=== PATIENT | female | born 2000 | race Two or more races ===

== ENCOUNTER 2024-02-19 18:46 | Inpatient (IN) | payer OTHER ==
[2024-02-19] MEDS ORDERED: PENICILLIN G POTASSIUM 5,000,000 (5Mm) UNIT VIAL IVPB ONE (19:34)
[2024-02-19] MEDS: LACTATED RINGERS SOLUTION 1,000 ML/1,000 ML INFUS.BAG IV SCH (19:45)
[2024-02-19] MEDS ORDERED: PENICILLIN G POTASSIUM 5,000,000 (5Mm) UNIT VIAL IVPB SCH (19:45)
[2024-02-19 20:06] VITALS: BMI 26.9
[2024-02-19] MEDS ORDERED: PENICILLIN G POTASSIUM 5,000,000 UNIT/250 ML BAG IVPB ONE (20:08)
[2024-02-19] MEDS: PENICILLIN G POTASSIUM 5,000,000 UNIT/250 ML BAG IVPB ONE (20:26)
[2024-02-19 21:15] LABS: BASO % 0.5 % (0-2.0); EOS % 0.8 % (0-4.5); HEMOGLOBIN 11.5 GM/dL (10.7-15.3); LYMPH % 20.2 % (8-40); MCH 29.9 pg (25.7-33.7); MCHC 33.8 g/dl (32.0-36.0); MEAN CELL VOLUME 88.4 fl (80-96); MONO % 7.1 % (3.8-10.2); NEUT % 71.4 % (42.8-82.8); PLATELET COUNT 200 10^3/uL (134-434); RBC 3.84 M/mm3 (3.60-5.2); RDW 15.1 % (11.6-15.6); WHITE BLOOD COUNT 10.2 K/mm3 (4.0-10.0)
[2024-02-19 21:21] LABS: INR 0.92 (0.83-1.09); PROTHROMBIN TIME (PATIENT) 10.6 SEC (9.7-13.0)
[2024-02-19 21:24] LABS: ACTIVATED PTT 29.6 SECONDS (25.2-36.5)
[2024-02-19 21:41] LABS: POTASSIUM 3.7 mmol/L (3.5-5.1)
[2024-02-19 21:43] LABS: CALCIUM 8.6 mg/dL (8.5-10.1)
[2024-02-19 21:44] LABS: BLOOD UREA NITROGEN 8.8 mg/dL (7-18)
[2024-02-19 21:47] LABS: CREATININE 0.6 mg/dL (0.55-1.3)
[2024-02-19] MEDS ORDERED: OXYTOCIN 30 UNITS in 0.9% NS 30 UNIT/500 ML INFUS.BAG IVPB ONE (21:58)
[2024-02-19] MEDS: OXYTOCIN 30 UNITS in 0.9% NS 30 UNIT/500 ML INFUS.BAG IVPB SCH (22:02)
[2024-02-20] MEDS: PENICILLIN G POTASSIUM 2,500,000 UNIT in SODIUM CHLORIDE 250 ML IVPB SCH (00:22)
[2024-02-20] MEDS ORDERED: BUTORPHANOL TARTRATE 2 MG/ML VIAL ONE (04:39)
[2024-02-20] MEDS ORDERED: PROMETHAZINE HCL 25 MG/1 ML VIAL ONE (04:39)
[2024-02-20] MEDS: BUTORPHANOL TARTRATE 1 MG/ML VIAL IVPB ONE (04:46)
[2024-02-20] MEDS: PROMETHAZINE HCL 25 MG/1 ML VIAL IVPB PRN (04:46)
[2024-02-20] MEDS ORDERED: OXYTOCIN 20 UNITS in 0.9% NS 20 UNIT/1,000 ML INFUS.BAG IV ONE (07:43)
[2024-02-20] MEDS ORDERED: LIDOCAINE HCL 1% PRESERVATIVE FREE - 30ML VIAL ONE (08:01)
[2024-02-20] MEDS: OXYTOCIN 20 UNITS in 0.9% NS 20 UNIT/1,000 ML INFUS.BAG IV SCH (08:30)
[2024-02-20 08:53] LABS: CORD BASE EXCESS -7.5 mmol/L (0-2); CORD pH 7.183 (7.14-7.44)
[2024-02-20 08:54] LABS: CORD BASE EXCESS -6.6 mmol/L (0-2); CORD PCO2 49.1 mmHg (30-78); CORD pH 7.249 (7.14-7.44)
[2024-02-20] MEDS ORDERED: BENZOCAINE 28 GM HEMORRHOIDAL OINTMENT TP PRN (09:00)
[2024-02-20] MEDS ORDERED: BISACODYL 10 MG SUPP.RECT RC PRN (09:00)
[2024-02-20] MEDS ORDERED: METHYLERGONOVINE MALEATE 0.2 MG/1 ML AMP IM PRN (09:00)
[2024-02-20] MEDS: BENZOCAINE 20% 57 GM BOTTLE TP PRN (11:20)
[2024-02-20] MEDS: ACETAMINOPHEN 325 MG TABLET (FP) PO PRN (11:21)
[2024-02-20] MEDS: PRENATAL VITAMINS W/ FOLIC ACID TABLET (FP) PO SCH (11:21)
[2024-02-20] MEDS: WITCH HAZEL 50% (TUCKS) 40 PAD/JAR PAD TP PRN (11:21)
[2024-02-20] MEDS: LEVOTHYROXINE NA 50 MCG TABLET (FP) PO SCH (12:35)
[2024-02-20] MEDS: IBUPROFEN 600 MG TABLET (FP) PO PRN (18:21)
[2024-02-21 07:29] LABS: BASO % 0.2 % (0-2.0); EOS % 0.4 % (0-4.5); HEMATOCRIT 34.6 % (32.4-45.2); HEMOGLOBIN 11.4 GM/dL (10.7-15.3); LYMPH % 18.4 % (8-40); MCH 29.5 pg (25.7-33.7); MCHC 33.1 g/dl (32.0-36.0); MEAN CELL VOLUME 89.3 fl (80-96); MONO % 6.1 % (3.8-10.2); NEUT % 74.9 % (42.8-82.8); PLATELET COUNT 196 10^3/uL (134-434); RBC 3.87 M/mm3 (3.60-5.2); RDW 14.6 % (11.6-15.6); WHITE BLOOD COUNT 14.1 K/mm3 (4.0-10.0)
[2024-02-21] MEDS: SENNOSIDES/DOCUSATE COMBO (SENNA PLUS) TABLET (UD) PO PRN (21:01)
[2024-02-22 09:11] VITALS: BP 122/78; PULSE 92; RESP 17; TEMP 98
== END 2024-02-22 12:05 | disposition home or self-care (01) | DRG 807 ==
LOC: JDEL 18:46 → JLDR 19:10 → J3W 02-20 10:50
PROVIDERS: ADMIT Obstetrics & Gynecology; ATTEND Obstetrics & Gynecology
PROC: 10E0XZZ Delivery of Products of Conception, External Approach (ICD-10-PCS; principal; 2024-02-20)
PROC: 0UQGXZZ Repair Vagina, External Approach (ICD-10-PCS; 2024-02-20)
PROC: 0W8NXZZ Division of Female Perineum, External Approach (ICD-10-PCS; 2024-02-20)
DX: O71.4 Obstetric high vaginal laceration alone (principal); O99.820 Streptococcus B carrier state complicating pregnancy; Z3A.39 39 weeks gestation of pregnancy; Z37.0 Single live birth
CPT/HCPCS: 36415; 36600; 59025; 59409; 80048; 82803; 85025; 85610; 85730; 86780; 86850; 86900; 86901